=== PATIENT | male | born 1950 | race Caucasian/White ===

== ENCOUNTER 2019-02-07 15:01 | Emergency (ER) | payer MEDICARE ==
--- NOTE | 2019-02-07 15:54 | CT ---
Head CT Technique: Multiple axial sections through the brain were obtained. Intravenous contrast was not utilized. Comparison: No previous intracranial imaging is available. Comparison: No prior intracranial imaging. Findings: Ventricles along with basal cisterns and sulci over the convexities are within normal limits for the patient's age. No abnormal parenchymal densities are seen. No evidence of intracranial hemorrhage. No midline shift or mass effect is seen. Bone window settings were reviewed which shows the visualized sinuses do appear clear. No acute calvarial abnormality is seen. Impression: 1. Nothing acute is identified on noncontrast head CT exam. If patient has persistent symptoms, MRI could then be considered. Diagnostic code #1
--- NOTE | 2019-02-07 16:10 | EDM.PDOC ---
ED HPI GENERAL MEDICAL PROBLEM - General Chief Complaint: Neurological Problem Stated Complaint: HIGH BP Time Seen by Provider: 02/07/19 15:22 Source of Information: Reports: Patient, Family History Limitations: Reports: No Limitations - History of Present Illness INITIAL COMMENTS - FREE TEXT/NARRATIVE: 68 y/o male presents to ER with cc confusion. reports this morning he was found wondering around, not himself. He reportedly didn't sleep well last evening. Today he has been off balance and fell. He reports while walking he felt sensation he was gone to fall and braced himself. He denies any headache, neck pain, back pain. He is alert, appropriate with periods of being confused. Short term and client partner memory loss noted. He is accompanied by his and neighbor. He does have a history of HTN and is hypertensive here in the ER , he did not take his B/P medications today. Onset: Today Onset Date: 02/07/19 Onset Time: 09:00 Duration: Intermittent Improves with: Reports: None Worsens with: Reports: None - Related Data Allergies Allergy/AdvReac Type Severity Reaction Status Date / Time No Known Allergies Allergy Verified 05/11/18 09:57 Home Meds: Home Meds Diltiazem HCl [Cartia Xt] 180 mg PO DAILY 02/07/19 [History] Etodolac [Lodine] 400 mg PO TID PRN 10 Days #20 tablet 02/07/19 [Rx] Orphenadrine [Norflex] 100 mg PO BID PRN 02/07/19 [History] Ranitidine HCl [Ranitidine] 150 mg PO BEDTIME PRN 02/07/19 [History] traMADol [Ultram] 50 mg PO Q6H PRN 02/07/19 [History] Past Medical History HEENT History: Reports: Other (See Below) Other HEENT History: wears upper dentures, only has 4 teeth left. Musculoskeletal History: Reports: Fracture Neurological History: Reports: Concussion Psychiatric History: Reports: Bipolar, Depression, Schizophrenia - Infectious Disease History Infectious Disease History: Reports: Chicken Pox, Measles - Past Surgical History GI Surgical History: Reports: Appendectomy Social & Family History - Tobacco Use Smoking Status *Q: Current Every Day Smoker Years of Tobacco use: 58 Packs/Tins Daily: 0.5 - Caffeine Use Caffeine Use: Reports: Coffee - Recreational Drug Use Recreational Drug Use: No ED ROS GENERAL - Review of Systems Review Of Systems: See Below Constitutional: Denies: Fever, Chills HEENT: Reports: No Symptoms Respiratory: Denies: Shortness of Breath Cardiovascular: Denies: Chest Pain Endocrine: Reports: Fatigue GI/Abdominal: Denies: No Symptoms : Reports: No Symptoms Musculoskeletal: Denies: Neck Pain, Back Pain Skin: Reports: No Symptoms Neurological: Reports: Confusion, Dizziness, Gait Disturbance. Denies: Headache , Weakness Psychiatric: Reports: No Symptoms Hematologic/Lymphatic: Reports: No Symptoms Immunologic: Reports: No Symptoms - Physical Exam Exam: See Below Exam Limited By: No Limitations General Appearance: Alert, WD/WN, No Apparent Distress Eye Exam: Bilateral Eye: EOMI, PERRL Ears: Normal External Exam, Normal Canal, Hearing Grossly Normal, Normal TMs Nose: Normal Inspection, Normal Mucosa, No Blood Throat/Mouth: Normal Inspection, Normal Lips, Normal Teeth, Normal Gums, Normal Oropharynx, Normal Voice, No Airway Compromise Head Exam: Atraumatic, Normocephalic Neck: Normal Inspection, Supple, Non-Tender, Full Range of Motion Respiratory/Chest: No Respiratory Distress, Lungs Clear, Normal Breath Sounds, No Accessory Muscle Use, Chest Non-Tender Cardiovascular: Normal Peripheral Pulses, Regular Rate, Rhythm, No Edema, No Gallop, No JVD, No Murmur, No Rub GI/Abdominal: Normal Bowel Sounds, Soft, Non-Tender, No Organomegaly, No Distention, No Abnormal Bruit, No Mass, Pelvis Stable Neuro Exam (Abbreviated): Alert, CN II-XII Intact, Normal Cognition, Normal Gait , Normal Reflexes, No Motor/Sensory Deficits, Confused, Memory Loss Recent Events Back Exam: Normal Inspection, Full Range of Motion Extremities: Normal Inspection, Normal Range of Motion, Non-Tender, No Pedal Edema, Normal Capillary Refill Psychiatric: Normal Affect, Normal Mood Skin Exam: Warm, Dry, Intact, Normal Color, No Rash EKG INTERPRETATION EKG Date: 02/07/19 Time: 15:29 Rhythm: NSR Course - Vital Signs Last Recorded V/S: Last Vital Signs Temp 98.5 F 02/07/19 15:18 Pulse 74 02/07/19 15:18 Resp 20 02/07/19 15:18 BP 183/101 H 02/07/19 15:18 Pulse Ox 95 02/07/19 15:18 - Orders/Labs/Meds Orders: Active Orders 24 hr Category Date Time Status EKG Documentation Completion [RC] STAT Care 02/07/19 15:23 Active Ketorolac [Toradol] Med 02/07/19 17:03 Once 60 mg IM ONETIME ONE Medication Orders Ketorolac Tromethamine (Toradol) 60 mg IM ONETIME ONE Stop: 02/07/19 17:04 Labs: Laboratory Tests 02/07/19 02/07/19 02/07/19 Range/Units 15:50 15:50 15:56 WBC 10.21 H (4.23-9.07) K/mm3 RBC 5.16 (4.63-6.08) M/mm3 Hgb 15.2 (13.7-17.5) gm/L Hct 44.8 (40.1-51.0) % MCV 86.8 (79.0-92.2) fl MCH 29.5 (25.7-32.2) pg MCHC 33.9 (32.2-35.5) g/dl RDW Std Deviation 44.1 H (35.1-43.9) fL Plt Count 438 H (163-337) K/mm3 MPV 7.9 L (9.4-12.3) fl Neut % (Auto) 60.3 (34.0-67.9) % Lymph % (Auto) 27.8 (21.8-53.1) % Brown % (Auto) 9.2 (5.3-12.2) % Eos % (Auto) 1.9 (0.8-7.0) Baso % (Auto) 0.3 (0.1-1.2) % Neut # (Auto) 6.16 H (1.78-5.38) K/mm3 Lymph # (Auto) 2.84 (1.32-3.57) K/mm3 Brown # (Auto) 0.94 H (0.30-0.82) K/mm3 Eos # (Auto) 0.19 (0.04-0.54) K/mm3 Baso # (Auto) 0.03 (0.01-0.08) K/mm3 Sodium 137 (136-145) mEq/L Potassium 3.9 (3.5-5.1) mEq/L Chloride 101 (98-107) mEq/L Carbon Dioxide 26 (21-32) mEq/L Anion Gap 13.9 (5-15) BUN 11 (7-18) mg/dL Creatinine 1.0 (0.7-1.3) mg/dL Est Cr Clr Drug Dosing 78.68 mL/min Estimated GFR (MDRD) > 60 (>60) mL/min BUN/Creatinine Ratio 11.0 L (14-18) Glucose 99 (80-115) mg/dL Calcium 9.7 (8.5-10.1) mg/dL Total Bilirubin 0.3 (0.2-1.0) mg/dL AST 13 L (15-37) U/L ALT 28 (16-63) U/L Alkaline Phosphatase 88 (46-116) U/L Total Protein 8.3 H (6.4-8.2) g/dl Albumin 4.2 (3.4-5.0) g/dl Globulin 4.1 gm/dL Albumin/Globulin Ratio 1.0 (1-2) Urine Color Yellow (Yellow) Urine Appearance Slt cloudy H (Clear) Urine pH 6.0 (5.0-8.0) Ur Specific Proctor 1.020 (1.005-1.030) Urine Protein Negative (Negative) Urine Glucose (UA) Negative (Negative) Urine Ketones Negative (Negative) Urine Occult Blood 1+ H (Negative) Urine Nitrite Negative (Negative) Urine Bilirubin Negative (Negative) Urine Urobilinogen 0.2 (0.2-1.0) Ur Leukocyte Esterase Negative (Negative) Meds: Medications Generic Name Dose Route Start Last Admin Trade Name Anand PRN Reason Stop Dose Admin Ketorolac Tromethamine 60 mg 02/07/19 17:03 Toradol IM 02/07/19 17:04 ONETIME ONE - Re-Assessments/Exams Free Text/Narrative Re-Assessment/Exam: 02/07/19 16:11 CT head reveals nothing acute is identified on noncontrast head CT exam. If patient has persistent symptoms, MRI could then be considered. 02/07/19 16:42 WBC 10.21 RBC 5.16 H & H 15.2/44.8 NA+ 137 K+ 3.9 chlor 101 co2 26 bun 11 creatine 1.0 urinalysis + 1 occult blood otherwise unremarkable. I am not certain what is causing his confusion. His chest x-ray was unremarkable and his other studies were normal. He continues to be confused at times. He is now complaining of generalized body aches and pain. I discussed admission with patient and . He is refusing. I will discharge home with instructions to have MRI of brain on ThursdayFebruary 11 at 0900. I will discharge home with instructions to follow up with his PCP for further evaluation and referral to a neurologist if needed. Patient and verbalized understanding and are comfortable with plan for discharge. He is stable at time of discharge. Departure - Departure Time of Disposition: 17:05 Disposition: Home, Self-Care 01 Condition: Good Clinical Impression: Musculoskeletal chest pain - Discharge Information Prescriptions: Etodolac [Lodine] 400 mg PO TID PRN 10 Days #20 tablet PRN Reason: Pain Instructions: Confusion, Muscle Strain, [id number] Referrals: PCP,None [Primary Care Provider] - Forms: ED Department Discharge Additional Instructions: You have been diagnosis with confusion. You are to have a MRI ThursdayFEBRUARY 11 at 0900. Follow up with Dr. Em next week for results and further evaluation. You have been given Lodine for pain. Be sure to eat while taking this medication. Return to the ER for any new or acute worsening symptoms. - My Orders Last 24 Hours: My Active Orders 02/07/19 15:23 EKG Documentation Completion [RC] STAT 02/07/19 17:03 Ketorolac [Toradol] 60 mg IM ONETIME ONE - Assessment/Plan Last 24 Hours: My Active Orders 02/07/19 15:23 EKG Documentation Completion [RC] STAT 02/07/19 17:03 Ketorolac [Toradol] 60 mg IM ONETIME ONE
--- NOTE | 2019-02-07 16:36 | CR ---
Chest: Two views of the chest were obtained. Comparison: Prior chest x-ray of 05/11/[address] of 05/13/18. Heart size and mediastinum are within normal limits. Lungs show no acute parenchymal change. Slight parenchymal density noted within the right lower lung which is felt to correlate to callus within a healing rib fracture. Mild degenerative change seen within the spine. Impression: 1. Nothing acute is seen on two-view chest x-ray. Diagnostic code #2
[2019-02-07] MEDS ORDERED: Ketorolac 60 MG/2 ML SDV IM ONE (17:03)
== END 2019-02-07 17:17 | disposition home or self-care (01) ==
LOC: JD.ED 15:01
DX: R07.89 Other chest pain (principal); F44.89 Other dissociative and conversion disorders; F17.210 Nicotine dependence, cigarettes, uncomplicated; Z79.899 Other long term (current) drug therapy
CPT/HCPCS: 36415; 70450; 71046; 80053; 81003; 85025; 93005; 96372; 99285; J1885; 93010; 99284

== ENCOUNTER 2023-02-23 12:40 | Emergency (ER) | payer MEDICARE ==
[2023-02-23] MEDS ORDERED: Sodium Chloride 0.9% 10 ML Syringe FLUSH PRN (12:44)
[2023-02-23] MEDS ORDERED: HYDROmorphone 0.5 MG/0.5 ML Syringe IVPUSH ONE (12:46)
[2023-02-23 13:13] LABS: BASOPHILS ABSOLUTE AUTO 0.03 K/mm3 (0.01-0.08); BASOPHILS PERCENT AUTO 0.1 % (0.1-1.2); EOSINOPHILS ABSOLUTE AUTO 0.01 K/mm3 (0.04-0.54); EOSINOPHILS PERCENT AUTO 0 (0.8-7.0); HEMATOCRIT 45.4 % (40.1-51.0); HEMOGLOBIN 15.4 gm/dl (13.7-17.5); IMMATURE GRAN ABSOLUTE AUTO 0.07 K/mm3 (0.00-0.10); IMMATURE GRAN PERCENT AUTO 0.3 % (<=1.0); LYMPHOCYTES ABSOLUTE AUTO 1.26 K/mm3 (1.32-3.57); LYMPHOCYTES PERCENT AUTO 6.1 % (21.8-53.1); MEAN CORPUSCULAR HEMOGLOBIN 31.7 pg (25.7-32.2); MEAN CORPUSCULAR HGB CONC 33.9 g/dl (32.2-35.5); MEAN CORPUSCULAR VOLUME 93.4 fl (79.0-92.2); MEAN PLATELET VOLUME 7.8 fl (9.4-12.3); MONOCYTES ABSOLUTE AUTO 0.74 K/mm3 (0.30-0.82); MONOCYTES PERCENT AUTO 3.6 % (5.3-12.2); NEUTROPHILS ABSOLUTE AUTO 18.51 K/mm3 (1.78-5.38); NEUTROPHILS PERCENT AUTO 89.9 % (34.0-67.9); PLATELET COUNT,PLT 567 K/mm3 (163-337); RED BLOOD CELL COUNT 4.86 M/mm3 (4.63-6.08); WHITE BLOOD CELL COUNT,WBC 20.62 K/mm3 (4.23-9.07)
[2023-02-23 13:35] LABS: A/G RATIO 0.9 (1-2); ALANINE AMINOTRANSFERASE,ALT 28 U/L (16-63); ALBUMIN 3.6 g/dl (3.4-5.0); ALKALINE PHOSPHATASE 75 U/L (46-116); ANION GAP 17.9 (5-15); ASPARTATE AMNIOTRANSFERASE,AST 29 U/L (15-37); BILIRUBIN TOTAL 0.3 mg/dL (0.2-1.0); BLOOD UREA NITROGEN,BUN 6 mg/dL (7-18); BUN/CREATININE RATIO 6.7 (14-18); CALCIUM 9.1 mg/dL (8.5-10.1); CARBON DIOXIDE,CO2 23 mEq/L (21-32); CHLORIDE,CL 99 mEq/L (98-107); CREATININE 0.9 mg/dL (0.7-1.3); ESTIMATED GFR 91 mL/min (>60); GLUCOSE RANDOM 102 mg/dL (70-99); LIPASE 83 U/L (73-393); POTASSIUM,K 3.9 mEq/L (3.5-5.1); PROTEIN TOTAL,TP 7.7 g/dl (6.4-8.2); SODIUM,NA 136 mEq/L (136-145)
[2023-02-23] MEDS ORDERED: Sodium Chloride 0.9% 10 ML Syringe FLUSH ONE (13:46)
[2023-02-23] MEDS ORDERED: Iopamidol 612 MG/ML 100 ML Bottle IVPUSH ONE (13:46)
[2023-02-23] MEDS ORDERED: Sodium Chloride 0.9% 100 ML IV SCH (14:00)
== END 2023-02-23 15:03 | disposition home or self-care (01) ==
LOC: JD.ED 12:40
DX: S22.42XA Multiple fractures of ribs, left side, initial encounter for closed fracture (principal); S27.2XXA Traumatic hemopneumothorax, initial encounter; F17.210 Nicotine dependence, cigarettes, uncomplicated; W01.10XA Fall on same level from slipping, tripping and stumbling with subsequent striking against unspecified object, initial encounter
CPT/HCPCS: 36415; 70450; 71260; 72125; 74177; 80053; 83690; 85025; 96374; 99285; J1170; J3490; Q9967; 99284

== ENCOUNTER 2023-02-28 08:28 | Emergency (ER) | payer MEDICARE ==
[2023-02-28] MEDS ORDERED: HYDROmorphone 1 MG/ML Syringe IM ONE (08:49)
[2023-02-28] MEDS ORDERED: Ketorolac 60 MG/2 ML SDV IM ONE (08:49)
== END 2023-02-28 10:35 | disposition home or self-care (01) ==
LOC: JD.ED 08:28
DX: S22.42XA Multiple fractures of ribs, left side, initial encounter for closed fracture (principal); S27.0XXA Traumatic pneumothorax, initial encounter; Z72.0 Tobacco use; W19.XXXA Unspecified fall, initial encounter
CPT/HCPCS: 71046; 96372; 99284; J1170; J1885